=== PATIENT | male | born 1980 | race Caucasian/White ===

== ENCOUNTER → 2023-04-11 09:52 | Outpatient (CLI) | payer OTHER, SELFPAY ==
--- NOTE | ~2023-04-11 | MR_ITS ---
MRI of the pelvis CLINICAL HISTORY: Left hip adductor strain TECHNIQUE: Coronal T1-weighted and T2 fat-sat images, sagittal T1-weighted and T2-weighted images, an d axial T1-weighted and T2 fat-sat images were performed. FINDINGS: There is prominent marrow edema about the pubic symphysis, compatible with osteitis pubis. Remaining bone marrow signals are unremarkable. No fracture or avascular necrosis in the proximal fem ora. Bilateral SI joint spaces are preserved. 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 No joint effusion evident. There is very mild edema at the origin of the left adductor bob and obturator externus muscles, co mpatible with low-grade muscle strain or other reactive myositis. Remaining musculature unremarkable. No mass lesion or fluid collection evident. No evidence for bursitis. IMPRESSION: Osteitis pubis, with prominent marrow edema about the pubic symphysis. Mild edema at the origin of the left adductor bob and obturator internus muscles, consistent with low-grade muscle strain or myositis. Reviewed, dictated and finalized at [facility]. [employer] IMPRESSION: Osteitis pubis, with prominent marrow edema about the pubic symphysis. Mild edema at the origin of the left adductor bob and obturator internus mus cles, consistent with low-grade muscle strain or myositis.
== END ==
DX: M86.8X8 Other osteomyelitis, other site (principal)
CPT/HCPCS: 72195